=== PATIENT | male | born 1995 | race Caucasian/White ===

== ENCOUNTER 2021-02-08 22:01 | Emergency (ER) | payer SELFPAY ==
[2021-02-08 22:28] VITALS: BP 129/76; PULSE 103; TEMP 98.8; BMI 33.2
[2021-02-09] MEDS ORDERED: IBUPROFEN 600 MG TABLET (FP) PO ONE ×2 (00:44→01:03)
== END 2021-02-09 01:35 | disposition home or self-care (01) ==
LOC: JERFT 22:01
DX: M79.632 Pain in left forearm (principal); X50.0XXA Overexertion from strenuous movement or load, initial encounter
CPT/HCPCS: 99283-25